=== PATIENT | male | born 1955 ===

== ENCOUNTER 2018-03-31 08:39 | Day surgery (SDC) | payer OTHER ==
[~2018-03-31] VITALS: Ht 185.4 cm; Wt 158.8 kg
[~2018-03-31 08:39] MED LIST: ALBU90OI61 INH; BUPR150ER PO; CHOL10002 PO; DOCCAL240 PO; HYDACE5 PO; SERT100 PO; Symbicort 16010.2 GM INH; TERA5 PO
== END 2018-03-31 23:09 | disposition home or self-care (01) ==
LOC: ORSCMMR 08:39 → ORD 10:15 → ORSCMMR 23:09
PROVIDERS: Surgery
PROC: 0DBL8ZX Excision of Transverse Colon, Via Natural or Artificial Opening Endoscopic, Diagnostic (ICD-10-PCS; principal; 2018-03-31 10:15)
PROC: 0DBN8ZX Excision of Sigmoid Colon, Via Natural or Artificial Opening Endoscopic, Diagnostic (ICD-10-PCS; principal; 2018-03-31 10:15)
DX: Z12.11 Encounter for screening for malignant neoplasm of colon (principal); D12.3 Benign neoplasm of transverse colon; D12.5 Benign neoplasm of sigmoid colon; J44.9 Chronic obstructive pulmonary disease, unspecified; F17.210 Nicotine dependence, cigarettes, uncomplicated; E66.01 Morbid (severe) obesity due to excess calories; Z68.42 Body mass index [BMI] 45.0-49.9, adult; Z79.899 Other long term (current) drug therapy
CPT/HCPCS: 88305; J2250; J7120